=== PATIENT | male | born 1950 | race Caucasian/White ===

== ENCOUNTER 2016-07-15 16:45 | Emergency (ER) | payer BC ==
[~2016-07-15] VITALS: Ht 180.3 cm; Wt 82.9 kg
[~2016-07-15 16:45] MED LIST: AMLODIPINE-BEN1 EAC2 PO; ASPIRIN325 MG PO; Antivert PO; CIALIS20 MG PO; Fish Oil PO; NIACIN PO; OMEPRAZOLE40 M1 PO; VENTOLIN HFA18 GM IH; ZOLPIDEM TARTRA10 MG PO; ZYRTEC10 M2 PO
[2016-07-15] MEDS ORDERED: FLEXERIL10 MG PO (18:59)
[2016-07-15] MEDS ORDERED: MOTRIN800 MG PO (19:00)
[2016-07-15 19:15] VITALS: BP 146/85
== END 2016-07-15 19:15 | disposition home or self-care (01) ==
LOC: EME 16:45
DX: S49.91XA Unspecified injury of right shoulder and upper arm, initial encounter (principal); W20.8XXA Other cause of strike by thrown, projected or falling object, initial encounter; Z79.82 Long term (current) use of aspirin; Z87.891 Personal history of nicotine dependence
CPT/HCPCS: 73030; 99281; 99284